=== PATIENT | male | born 1985 | race Asian ===

== ENCOUNTER 2018-05-23 10:38 | Outpatient (CLI) | payer OTHER, MEDICARE ==
[2018-05-23 11:23] LABS: Hematocrit 47.2 % (35.5-45.6); Hemoglobin 15.8 gm/dl (11.8-15.2); Mean Corpuscular HGB Conc 34 % (32-34); Mean Corpuscular Volume 88 fl (84-94); Platelet Count 145 K/mm3 (140-440); Red Blood Count 5.38 M/mm3 (3.65-5.03); Red Cell Distribution Width 13.5 % (13.2-15.2)
[2018-05-23 11:42] LABS: Alanine Aminotransferase 20 units/L (7-56); Albumin 4.5 g/dL (3.9-5); BUN/Creatinine Ratio 13; Blood Urea Nitrogen 12 mg/dL (9-20); Calcium 8.9 mg/dL (8.4-10.2); Hemolysis Index 8; LDL Cholesterol,Direct 82 mg/dL (50-130)
[2018-05-23 11:56] LABS: Chol/HDL Ratio 3.07 %; HDL Cholesterol 39 mg/dL (40-59)
== END 2018-05-23 10:39 | disposition home or self-care (01) ==
LOC: LAB 10:38
PROVIDERS: ATTEND Internal Medicine
DX: Z00.01 Encounter for general adult medical examination with abnormal findings (principal); E55.9 Vitamin D deficiency, unspecified; E10.9 Type 1 diabetes mellitus without complications; R63.4 Abnormal weight loss
CPT/HCPCS: 36415; 80053; 80061; 82306; 82607; 83036; 84443; 85027

== ENCOUNTER 2018-10-10 08:24 | Outpatient (CLI) | payer OTHER, MEDICARE ==
[2018-10-14 13:05] LABS: Vitamin D, 25-OH, D2 <4 ng/mL
== END 2018-10-10 08:25 | disposition home or self-care (01) ==
LOC: LAB 08:24
PROVIDERS: ATTEND Internal Medicine
DX: E55.9 Vitamin D deficiency, unspecified (principal); E10.9 Type 1 diabetes mellitus without complications
CPT/HCPCS: 36415; 82306; 83036

== ENCOUNTER 2021-08-25 10:46 | Outpatient (CLI) | payer OTHER, MEDICARE ==
[2021-08-25 12:43] LABS: Chol/HDL Ratio 3.34 %
== END 2021-08-25 10:47 | disposition home or self-care (01) ==
LOC: LABHHL 10:46
PROVIDERS: ATTEND Internal Medicine
DX: E10.9 Type 1 diabetes mellitus without complications (principal)
CPT/HCPCS: 36415; 80061; 83036